=== PATIENT | male | born 1985 | race Caucasian/White ===

== ENCOUNTER 2022-05-05 11:00 | Emergency (ER) | payer BC, SELFPAY ==
[2022-05-05 11:16] VITALS: BP 135/86; PULSE 85; RESP 16; TEMP 36.7; O2SAT 98
--- NOTE | 2022-05-05 11:44 | ED.EAR ---
HPI - Ear Problem General Chief complaint: Ear Stated complaint: Ear infection Time Seen by Provider: 05/05/22 11:20 Source: patient Mode of arrival: ambulatory Limitations: no limitations History of Present Illness HPI Narrative: Nikolay is a 36-year-old male patient presenting to the clinic today with complaints of possible ruptured eardrum to the right ear. He reports he was having a lot ear pain that started last night and when he woke up this morning his there was a lot of blood on his pillow and his pain was improved. Thinks he may have ruptured eardrum Related Data Allergies Allergy/AdvReac Type Severity Reaction Status Date / Time haloperidol Allergy Unknown Other Verified 05/05/22 11:16 Review of Systems Review of Systems: Pertinent positives per HPI. Patient denies any fever, chills, rash, headache, visual changes, dizziness, cough, shortness of breath, chest pain, palpitations, nausea, vomiting, diarrhea, constipation, abdominal pain, or any urinary issues. PMFSH Comments At the time of my signature, I reviewed and agree with the nursing past medical, surgical, social, and family history. There is no relevant family history pertinent to the patient complaint. Exam Narrative: General: Well-developed, well nourished, in no apparent distress Head: Normocephalic, atraumatic Eyes: Pupils equally round and reactive to light bilaterally, EOM intact, sclera and conjunctive clear, no discharge, lids normal Ears: Left TMs intact and clear, right TM ruptured with fluid behind the TM and blood in the ear canal, left ear canals clear, grossly hearing normal. Nose: Nares patent, no discharge, no inflammation, no sinus tenderness. Mouth: Oral pharynx without lesions or masses, good dentition, MMM. Neck: Supple, trachea midline, no enlargement of anterior or posterior cervical nodes, no thyroid masses or goiter palpable. Cardio: Regular rate and rhythm, s1 and s2 normal, no murmur appreciated. Resp: Clear to auscultation bilaterally, no rhonchi, rales, wheezing or rubs Course Course Emergency Course: Portions of this record may have been created with voice recognition software. Level of Care: Express Care Visit Vital Signs Vital signs: Vital Signs Temperature 36.7 C 05/05/22 11:16 Pulse Rate 85 05/05/22 11:16 Respiratory Rate 16 05/05/22 11:16 Blood Pressure 135/86 03/07/23 11:16 Pulse Oximetry 98 05/05/22 11:16 Oxygen Delivery Room Air 05/05/22 11:16 Temperature 36.7 C 05/05/22 11:16 Pulse Rate 85 05/05/22 11:16 Respiratory Rate 16 05/05/22 11:16 Blood Pressure 135/86 05/05/22 11:16 Pulse Oximetry 98 05/05/22 11:16 Oxygen Delivery Room Air 05/05/22 11:16 Vital signs reviewed Medical Decision Making MDM Narrative Medical decision making narrative: At the time of visit patient is resting comfortably on the exam table. I suspect patient has a ruptured right tympanic membrane. Will send in prescription for some ofloxacin ear drops and have him follow up with ENT this week. Supportive measures were discussed with the patient he voiced understanding discharge instructions agrees to treatment plan. Differential Diagnosis Differential Diagnosis: Otitis media, otitis externa, eustachian tube dysfunction, ruptured TM Vital Signs Vital Signs: Vital Signs Temperature 36.7 C 05/05/22 11:16 Pulse Rate 85 05/05/22 11:16 Respiratory Rate 16 05/05/22 11:16 Blood Pressure 135/86 05/05/22 11:16 Pulse Oximetry 98 05/05/22 11:16 Oxygen Delivery Room Air 05/05/22 11:16 Temperature 36.7 C 05/05/22 11:16 Pulse Rate 85 05/05/22 11:16 Respiratory Rate 16 05/05/22 11:16 Blood Pressure 135/86 05/05/22 11:16 Pulse Oximetry 98 05/05/22 11:16 Oxygen Delivery Room Air 05/05/22 11:16 Discharge Plan Discharge Clinical Impression: Eardrum rupture, right Patient Disposition: Home, Self-Care Condition: Stable Instructions: An
== END 2022-05-05 11:55 | disposition home or self-care (01) ==
PROVIDERS: Emergency Provider Nurse Practitioner Family
DX: H72.91 Unspecified perforation of tympanic membrane, right ear (principal)
CPT/HCPCS: 99213; G0463

== ENCOUNTER 2022-10-01 15:28 | Emergency (ER) | payer MEDICAID, SELFPAY ==
[2022-10-01 15:50] VITALS: BP 123/70; PULSE 84; RESP 16; TEMP 37; O2SAT 98
--- NOTE | 2022-10-01 16:32 | ED.SKABFB ---
HPI - Skin/Abscess/Foreign Bdy General Chief complaint: Skin/Abscess/Foreign Body Stated complaint: rash on body Source: patient Mode of arrival: ambulatory Limitations: no limitations History of Present Illness HPI narrative: 37 year old male presented for complaint of intensely itching rash between index middle and ring fingers on both hands, left elbow and behind ears. States he used itch cream and he took 10 benadryl from the onset of symptoms, but has had no improvement in itching. Denies pain or drainage from the sites. Denies lip, tongue, or throat swelling, shortness of breath or wheezing. Denies changes to soap, detergent, lotion, or any other exposures. States he did move some belongings from a storage shed, and has cut grass recently. No one else in the house or any contacts with similar symptoms. Related Data Allergies Allergy/AdvReac Type Severity Reaction Status Date / Time haloperidol Allergy Unknown Other Verified 10/01/22 15:47 Review of Systems Review of Systems: CONSTITUTIONAL: Denies body aches, fever, chills, or sweats. EYES: Denies visual changes, redness, or discharge. ENT: Denies rhinorrhea, congestion CARDIOVASCULAR: Denies chest pain, palpitations, or edema. RESPIRATORY: Denies cough or dyspnea. GASTROINTESTINAL: Denies abdominal pain, nausea, vomiting, or diarrhea. SKIN: Per HPI MUSCULOSKELETAL: Denies back pain, joint pain, or myalgia. NEUROLOGIC: Denies headache, numbness, tingling, or weakness. [facility] Past Medical History Medical History (Updated 10/01/22 @ 17:04 by Elaine Infante, NICOLE) No pertinent past medical history Comments At time of signature, I have reviewed and agree with nursing past medical, surgical, social and family history unless otherwise noted. Please see nursing chart for further information. There is no relevant family history pertinent to the presenting complaint Exam Narrative: GENERAL: Well-appearing HEAD: Normocephalic, atraumatic. EYES: conjunctivae clear, and EOMI. ENT: Mucous membranes moist. Oropharynx without edema, erythema or lesions. NECK: Supple. No lymphadenopathy CHEST: Clear to auscultation. HEART: Regular rate and rhythm. SKIN: Warm, dry. Erythematous raised papules noted between the 2nd, 3rd, and 4th web spaces of both hands, the left AC, and behind the right ear NEURO: Alert and oriented x3. Course Course Emergency Course: Patient is aware of diagnosis, understands and agrees to treatment plan. Anticipatory guidance given. Patient agrees to follow-up as directed and is aware of reasons to seek care at the emergency department. Portions of this record may have been created with voice recognition software Level of Care: Express Care Visit Vital Signs Vital signs: Vital Signs Temperature 98.6 F 10/01/22 15:50 Pulse Rate 84 10/01/22 15:50 Respiratory Rate 16 10/01/22 15:50 Blood Pressure 123/70 10/01/22 15:50 Pulse Oximetry 98 10/01/22 15:50 Oxygen Delivery Room Air 10/01/22 15:50 Temperature 98.6 F 10/01/22 15:50 Pulse Rate 84 10/01/22 15:50 Respiratory Rate 16 10/01/22 15:50 Blood Pressure 123/70 10/01/22 15:50 Pulse Oximetry 98 10/01/22 15:50 Oxygen Delivery Room Air 10/01/22 15:50 Reviewed MDM - Skin/Abscess/Foreign Bdy MDM Narrative Medical decision making narrative: Patient presented for intensely pruritic rash to hands and left arm, right ear. Discussed physical exam findings. Will provide permethrin cream due to the likelihood of scabies. Advised supportive measures and signs/symptoms to go to the ER. Pt is appropriate for outpt treatment and f/u. Instructed patient to go to nearest ER immediately for any worsening symptoms including but not limited to: fever, spreading rash, pain, sore throat, headache, dizziness, chest pain, trouble breathing, or any symptoms concerning to the patient. Differential Diagnosis Differential diagnosis: Likely abscess of skin or s
== END 2022-10-01 16:50 | disposition home or self-care (01) ==
PROVIDERS: Emergency Provider Nurse Practitioner Family; PCP Emergency Medicine
DX: L30.9 Dermatitis, unspecified (principal)
CPT/HCPCS: 99213; G0463

== ENCOUNTER 2023-03-24 05:59 | Emergency (ER) | payer BC, SELFPAY ==
--- NOTE | ~2023-03-24 | XR_ITS ---
Right Forearm AP and lateral views of the right forearm were performed. Clinical History: Injury Findings: No fracture or dislocation is seen. Osseous alignment in anatomic. Joint spaces are prese rved. Soft tissues are unremarkable. Impression: Unremarkable exam. Reviewed, dictated and finalized at location . 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
[2023-03-24 06:10] VITALS: BP 136/90; PULSE 108; RESP 18; TEMP 36.5; O2SAT 100
--- NOTE | 2023-03-24 07:17 | PC.NURSE ---
Report given to OCTAVIO Vicente. RN had no questions at this time.
--- NOTE | 2023-03-24 07:58 | ED.GENADULT ---
HPI - General Adult General Chief complaint: Extremity Injury, Upper Stated complaint: rt forearm pain Time Seen by Provider: 03/24/23 06:53 History of Present Illness HPI narrative: 37-year-old male presenting to the emergency department for evaluation of right forearm pain. Patient states that few days ago he struck the inner right elbow on the car door causing an area of ecchymosis but patient denies any associated pain or limited range of motion with this. Patient states while he was lifting boxes today at work he had onset of right forearm pain. Patient states that the pain continued to worsen so he presented to the ED for evaluation. Related Data Home Medications Medication Instructions Recorded Confirmed No Home Medications 03/24/23 Allergies Allergy/AdvReac Type Severity Reaction Status Date / Time haloperidol Allergy Unknown Other Verified 03/24/23 06:35 Review of Systems Review of Systems: All systems reviewed & are unremarkable except as noted in HPI and below PMFSH Past Medical History Medical History (Updated 03/24/23 @ 08:02 by Sonny Fernandez MD) No pertinent past medical history Exam Narrative: APPEARANCE: Well appearing, no pain, no distress, well-nourished. HEAD: normocephalic, atraumatic. EYES: PERRLA/EOMI, conjunctivae clear. NOSE: Normal no drainage NECK: Supple. No adenopathy, no masses. RESPIRATORY: Airway patent, respirations nonlabored. Clear to auscultation bilaterally, no rales, rhonchi, wheezing. CARDIOVASCULAR: Regular rate and rhythm without murmurs rubs or gallops. ABDOMINAL: Soft, nontender, nondistended, normal bowel sounds MUSCULOSKELETAL: No erythema, no edema, no tenderness to palpation NEURO: Alert. Cranial nerves II through XII intact. Grossly intact SKIN: Warm, dry. Normal Color Course Course Emergency Course: 37-year-old male present to the emergency department for evaluation of right forearm pain. X-ray showed no acute fracture dislocation. Patient has normal cap refill, patient is neurovascularly intact, no overlying erythema, no edema and no tenderness to palpation. Patient reports pain is worsened in the forearm with lifting and range of motion. Cystic a muscular strain. Patient was advised to take Tylenol and ibuprofen for pain control and patient was provided 2 days of light duty Vital Signs Vital signs: Vital Signs Temperature 97.7 F 03/24/23 06:10 Pulse Rate 108 H 03/24/23 06:10 Respiratory Rate 18 03/24/23 06:10 Blood Pressure 136/90 03/24/23 06:10 Pulse Oximetry 100 03/24/23 06:10 Oxygen Delivery Room Air 03/24/23 06:10 Temperature 97.7 F 03/24/23 06:10 Pulse Rate 108 H 03/24/23 06:10 Respiratory Rate 18 03/24/23 06:10 Blood Pressure 136/90 03/24/23 06:10 Pulse Oximetry 100 03/24/23 06:10 Oxygen Delivery Room Air 03/24/23 06:10 Medical Decision Making Differential Diagnosis Differential Diagnosis: Forearm contusion, arm strain, tendinitis, hematoma Vital Signs Vital Signs: Vital Signs Temperature 97.7 F 03/24/23 06:10 Pulse Rate 108 H 03/24/23 06:10 Respiratory Rate 18 03/24/23 06:10 Blood Pressure 136/90 03/24/23 06:10 Pulse Oximetry 100 03/24/23 06:10 Oxygen Delivery Room Air 03/24/23 06:10 Temperature 97.7 F 03/24/23 06:10 Pulse Rate 108 H 03/24/23 06:10 Respiratory Rate 18 03/24/23 06:10 Blood Pressure 136/90 03/24/23 06:10 Pulse Oximetry 100 03/24/23 06:10 Oxygen Delivery Room Air 03/24/23 06:10 Imaging Data Radiologist's impression: Impressions Forearm X-Ray 03/24/23 07:36 Impression: Unremarkable exam. Discharge Plan Discharge Clinical Impression: Forearm strain Patient Disposition: Home, Self-Care Condition: Stable Instructions: Antibiotic Form, Muscle Strain (ED) Additional Instructions: Avoid heavy lifting for the next 2 days. Tylenol and ibuprofen for pain control. Have close fol
== END 2023-03-24 08:10 | disposition home or self-care (01) ==
PROVIDERS: Emergency Provider Emergency Medicine; PCP Emergency Medicine
DX: S56.911A Strain of unspecified muscles, fascia and tendons at forearm level, right arm, initial encounter (principal); X50.0XXA Overexertion from strenuous movement or load, initial encounter
CPT/HCPCS: 73090; 99283

== ENCOUNTER 2023-12-06 18:20 | Emergency (ER) | payer SELFPAY ==
--- NOTE | 2023-12-06 18:27 | ED.ANXIETY ---
HPI - Anxiety General Chief Complaint: Anxiety Stated Complaint: Anxitey Time Seen by Provider: 12/06/23 18:23 Source: patient Mode of arrival: ambulatory Limitations: no limitations History of Present Illness HPI narrative: Nikolay is a 38-year-old male patient presenting to the clinic today with complaints of anxiety that started this morning. He does have a history of anxiety and he has not taken any medications for over 2 years for anxiety or depression. States that he felt more anxious when he woke up this morning after working last night. Has been trying to use focus techniques as well as distraction and still feels very anxious. Has taken clonidine in the past for anxiety and this helped him. Related Data Allergies Allergy/AdvReac Type Severity Reaction Status Date / Time haloperidol Allergy Unknown Other Verified 12/06/23 18:51 [facility] Past Medical History Medical History (Updated 12/06/23 @ 18:35 by Gal Cole APRN) No pertinent past medical history Comments At the time of my signature, I reviewed and agree with the nursing past medical, surgical, social, and family history. There is no relevant family history pertinent to the patient complaint. Exam Narrative: General: Well-developed, well nourished, in no apparent distress Head: Normocephalic, atraumatic. Cardio: Regular rate and rhythm, s1 and s2 normal, no murmur appreciated. Resp: Clear to auscultation bilaterally, no rhonchi, rales, wheezing or rubs. Extremities: No deformity, no edema, no cyanosis, capillary refill less than 2 seconds, peripheral pulses palpable and strong. Integumentary: [place], warm, and dry, intact without lesion, no rashes. Psych: Depressed and anxious appearing. Insight good, intact judgment, no suicidal or homicidal ideation Course Course Emergency Course: Portions of this record may have been created with voice recognition software. Level of Care: Express Care Visit Vital Signs Vital signs: Vital Signs Temperature 37.3 C 12/06/23 18:30 Pulse Rate 83 12/06/23 18:30 Respiratory Rate 19 12/06/23 18:30 Blood Pressure 142/87 H 12/06/23 18:30 Pulse Oximetry 100 12/06/23 18:30 Oxygen Delivery Room Air 12/06/23 18:30 Temperature 37.3 C 12/06/23 18:30 Pulse Rate 83 12/06/23 18:30 Respiratory Rate 19 12/06/23 18:30 Blood Pressure 142/87 H 12/06/23 18:30 Pulse Oximetry 100 12/06/23 18:30 Oxygen Delivery Room Air 12/06/23 18:30 Vital signs reviewed MDM - Anxiety MDM Narrative Medical decision making narrative: At the time of visit patient is resting comfortably on the exam table. Patient appears to be nontoxic. Plan: Will give patient 50 mg IM Benadryl tonight to help with anxiety as well as 1 dose of clonidine 0.1 mg in the clinic. Prescription for clonidine was sent to the pharmacy. Supportive measures were discussed with the patient and they voiced understanding discharge instructions and agrees to treatment plan. Return precautions reviewed Differential Diagnosis Differential diagnosis: Likely hyperventilation, panic disorder and acute anxiety Discharge Plan Discharge Clinical Impression: Anxiety Patient Disposition: Home, Self-Care Condition: Stable Instructions: Antibiotic Form, Anxiety (ED) Additional Instructions: Clonidine 0.1 mg p.o. and Benadryl 50 mg IM given in the clinic today Go home and rest in a cool dark place Decreased stimulus Increase fluids and stay well hydrated Follow-up with your primary care doctor this week Prescriptions: New clonidine HCl 0.1 mg tablet 0.1 mg PO BID PRN (Reason: anxiety) 3 Days Qty: 6 0RF Follow-up/Referrals: PHYSICIAN,RIG OPERATOR [Primary Care Provider] - Stand Alone Forms: Work/School Release IP Time of Disposition: 18:35 Quality NIHSS Nursing Documentation ED NIHSS nursing documentation: reviewed/agree
[2023-12-06 18:30] VITALS: BP 142/87; PULSE 83; RESP 19; TEMP 37.3; O2SAT 100
[2023-12-06] MEDS: diphenhydrAMINE HCl INJ 50 MG/ML VIAL IM (18:41)
== END 2023-12-06 19:11 | disposition home or self-care (01) ==
PROVIDERS: Emergency Provider Nurse Practitioner Family
DX: F41.9 Anxiety disorder, unspecified (principal)
CPT/HCPCS: 96372; 99213; G0463; J1200

== ENCOUNTER 2023-12-14 09:29 | Emergency (ER) | payer SELFPAY ==
[2023-12-14 09:36] VITALS: BP 135/65; PULSE 76; RESP 18; TEMP 36.5; O2SAT 98
--- NOTE | 2023-12-14 10:28 | ED.SKABFB ---
HPI - Skin/Abscess/Foreign Bdy General Chief complaint: Skin/Abscess/Foreign Body Stated complaint: Left foot pain Time Seen by Provider: 12/14/23 09:44 History of Present Illness HPI narrative: Patient is a 38-year-old male who presents to the ER with a small growth on his 3rd digit and 4th digit on his left foot. Patient reports he 1st noticed it a month ago, but endorses increased pain over the last 2 weeks. He describes the pain is sharp, stabbing and increases with standing. Patient reports he has been soaking his left metatarsals and soapy water, but has not noticed any difference. He also reports got new shoes about 2 weeks ago and the pain has gotten worse since then. Patient has no other pertinent medical history related to this visit. He denies any other symptoms of illness, infection, or swollen joints. Patient reports he has not taken any pain medication nor does he have a primary care provider. Related Data Allergies Allergy/AdvReac Type Severity Reaction Status Date / Time haloperidol Allergy Unknown Other Verified 12/14/23 09:41 Review of Systems Review of Systems: All systems reviewed & are unremarkable except as noted in HPI and below PMFSH Past Medical History Medical History No pertinent past medical history Exam Narrative: GENERAL: Well appearing, well-nourished, non-toxic, in no acute distress. RESPIRATORY: Airway patent, respirations nonlabored. Clear to auscultation bilaterally, no rales, rhonchi, wheezing. CARDIOVASCULAR: Regular rate and rhythm without murmurs, rubs, or gallops. Peripheral pulses 2+ and equal bilaterally. ABDOMINAL: Soft, nontender, nondistended, no hepatosplenomegaly. Normoactive BS. MUSCULOSKELETAL: Moves all extremities. Strength/ROM intact without gross deformities. SKIN: Warm, dry, normal color. No rashes. NEURO: A&O X3. Speech clear. Cranial nerves II-XII grossly intact. Steady gait. No ataxic movements. PSYCHIATRIC: Appropriate mood and affect. Normal interaction. Course Vital Signs Vital signs: Vital Signs Temperature 36.5 C 12/14/23 09:36 Pulse Rate 76 12/14/23 09:36 Respiratory Rate 18 12/14/23 09:36 Blood Pressure 135/65 12/14/23 09:36 Pulse Oximetry 98 12/14/23 09:36 Temperature 36.5 C 12/14/23 09:36 Pulse Rate 76 12/14/23 09:36 Respiratory Rate 18 12/14/23 09:36 Blood Pressure 135/65 12/14/23 09:36 Pulse Oximetry 98 12/14/23 09:36 MDM - Skin/Abscess/Foreign Bdy MDM Narrative Medical decision making narrative: Patient is a 38-year-old male who presents to the ER with a small growth on his 3rd digit and 4th digit on his left foot. Patient reports he 1st noticed it a month ago, but endorses increased pain over the last 2 weeks. He describes the pain is sharp, stabbing and increases with standing. Patient reports he has been soaking his left metatarsals and soapy water, but has not noticed any difference. He also reports got new shoes about 2 weeks ago and the pain has gotten worse since then. Patient has no other pertinent medical history related to this visit. He denies any other symptoms of illness, infection, or swollen joints. Patient reports he has not taken any pain medication nor does he have a primary care provider. Upon examination patient has a 1/4 and papilloma on the right side of his 3rd metatarsal and a 1/8 inch papilloma on the left side his 4th metatarsal. The two papilloma appeared to be rubbing against each other. There are no signs of infection. No redness, warmth, pus or swelling. Patient is able to move all digits his left foot. No imaging or blood work performed. Patient will be discharged home with a hydrocolloid load dressing on each of his papillomas. he can follow up with a complex human resources manager if the lesions get worse. Differential Diagnosis Differential diagnosis: Likely abscess of skin or subcutaneous tissue,
== END 2023-12-14 11:15 | disposition home or self-care (01) ==
LOC: ANHED 10:53
PROVIDERS: Emergency Provider Registered Nurse
DX: D36.7 Benign neoplasm of other specified sites (principal)
CPT/HCPCS: 99283